=== PATIENT | female | born 1985 | race Caucasian/White ===

== ENCOUNTER 2019-03-19 04:12 | Emergency (ER) | payer MEDICAID ==
[~2019-03-19] VITALS: Ht 175.3 cm; Wt 75.0 kg
[~2019-03-19 04:12] MED LIST: IBUP-1051 PO; NO HOME MEDS; VAL2T PO
[2019-03-19 04:15] VITALS: BP 133/82
--- NOTE | 2019-03-19 04:35 | NUR ---
[facility] CONTACTED LOG #[id number] - 03/06/19 WAS THE DATE OF THE INCIDENT AND IT WAS ALREADY REPORTED.
--- NOTE | 2019-03-19 04:46 | NUR ---
PT OFFERED ICE BUT SHE DECLINES
== END 2019-03-19 05:19 | disposition home or self-care (01) ==
LOC: ER 04:13
DX: S62.617A Displaced fracture of proximal phalanx of left little finger, initial encounter for closed fracture (principal); Z79.899 Other long term (current) drug therapy; Z90.49 Acquired absence of other specified parts of digestive tract; Z98.890 Other specified postprocedural states; Z56.0 Unemployment, unspecified; X58.XXXA Exposure to other specified factors, initial encounter; Y93.39 Activity, other involving climbing, rappelling and jumping off; Y92.89 Other specified places as the place of occurrence of the external cause; Y99.8 Other external cause status
CPT/HCPCS: 29125; 73130; 99283

== ENCOUNTER 2019-04-11 11:58 | Outpatient (CLI) | payer MEDICAID | END 2019-04-11 13:50 | disposition home or self-care (01) | LOC: ORTHO 11:58 | PROVIDERS: ATTEND Orthopaedic Surgery | DX: S62.617D Displaced fracture of proximal phalanx of left little finger, subsequent encounter for fracture with routine healing (principal); F17.200 Nicotine dependence, unspecified, uncomplicated; X58.XXXD Exposure to other specified factors, subsequent encounter | CPT/HCPCS: 73140; G0463 ==

== ENCOUNTER 2019-04-16 08:30 | Outpatient (CLI) | payer MEDICAID ==
[~2019-04-16] VITALS: Ht 175.3 cm; Wt 76.2 kg
[2019-04-16 09:31] LABS: BASOPHILS % (AUTO) 0.6 % (0-1); EOSINOPHILS # (AUTO) 0.2 X10'3 (0-0.9); EOSINOPHILS % (AUTO) 2.3 % (0-6); LYMPHOCYTES # (AUTO) 1.8 X10'3 (1.1-4.8); LYMPHOCYTES % (AUTO) 22.3 % (21-51); MEAN CORPUSCULAR HEMOGLOBIN 32.4 PG (27.0-31.0); MEAN CORPUSCULAR HGB CONC 34.5 g/dL (33.0-36.5); MEAN CORPUSCULAR VOLUME 93.9 FL (78-98); MEAN PLATELET VOLUME 7.2 FL (7.4-10.4); MONOCYTES # (AUTO) 0.7 X10'3 (0-0.9); MONOCYTES % (AUTO) 9.1 % (2-12); NEUTROPHILS # (AUTO) 5.2 X10'3 (1.8-7.7); NEUTROPHILS % (AUTO) 65.7 % (42-75); PRE OP HEMATOCRIT 37.6 % (35.0-45.0); PRE OP PLATELET COUNT 345 X10'3 (140-440); RED CELL DISTRIBUTION WIDTH 13.6 % (11.5-14.5)
[2019-04-16 09:37] LABS: ALBUMIN 3.3 G/DL (3.4-5.0); ALBUMIN/GLOBULIN RATIO 0.9 (1.1-1.5); ALKALINE PHOSPHATASE 59 IU/L (46-116); BLOOD UREA NITROGEN 11 MG/DL (7-18); BUN/CREATININE RATIO 15.5 (6.6-38.0); CALCIUM 8.4 MG/DL (8.5-10.1); CHLORIDE 105 MMOL/L (99-107); CREATININE 0.71 MG/DL (0.40-0.90); PRE OP ALT 16 U/L (30-65); PRE OP ANION GAP 7 (8-16); PRE OP AST 12 U/L (10-37); PRE OP BILIRUB, TOTAL 0.3 MG/DL (0.0-1.0); PRE OP GLUCOSE 88 MG/DL (70-104); PRE OP POTASSIUM 3.8 MMOL/L (3.4-5.1); PRE OP SODIUM 139 MMOL/L (135-145); TOTAL PROTEIN 6.9 G/DL (6.4-8.2); eGFR > 90 ML/MIN
--- NOTE | 2019-04-16 10:30 | NUR ---
PT'S HCG CAME BACK POSITIVE, CALL TO DR FRANCOIS'S OFFICE AND LEFT MESSAGE WITH HIS STAFF, THEY WILL BE CONTACTING PT.
[2019-04-16 11:01] LABS: HCG SERUM QL POSITIVE
[2019-04-17] MEDS ORDERED: ringers solution, lacted 1,000 ML IV SCH (05:00)
[2019-04-17] MEDS ORDERED: famotidine 20mg tablet PO ONE (05:30)
[2019-04-17] MEDS ORDERED: cefazolin/dext.iso 2gm/50ml 50 ML IV ONE (05:30)
== END 2019-04-16 23:59 | disposition home or self-care (01) ==
LOC: PRE-OP 08:30 → EDSTATUS 04-17 17:15
PROVIDERS: ATTEND Orthopaedic Surgery
DX: S62.647D Nondisplaced fracture of proximal phalanx of left little finger, subsequent encounter for fracture with routine healing (principal)
CPT/HCPCS: 36415; 80053; 84703; 85025; J7120

== ENCOUNTER 2019-12-02 08:59 | Emergency (ER) | payer MEDICAID ==
[~2019-12-02] VITALS: Ht 175.3 cm; Wt 78.2 kg
[~2019-12-02 08:59] MED LIST changes: -IBUP-1051 PO; -VAL2T PO
[2019-12-02] MEDS ORDERED: OFLO5DRO5 RIGHT EAR (09:38)
[2019-12-02 10:02] LABS: CLARITY,URINE CLOUDY (Clear); COLOR,URINE YELLOW (Yellow); GLUCOSE, URINE NEGATIVE (Neg); KETONES,URINE NEGATIVE (Neg); LEUKOCYTE ESTERASE ,URINE NEGATIVE (Neg); NITRITES, URINE NEGATIVE (Neg); OCCULT BLOOD,URINE LARGE (Neg); PROTEIN,URINE TRACE mg/dl (Neg); UROBILINOGEN,URINE 0.2 E.U/dL (0.2-1.0)
[2019-12-02 10:06] LABS: UA COLLECTION TYPE CLN CATCH MIDSTREAM
[2019-12-02 10:07] LABS: MUCUS STRANDS MODERATE /LPF (Neg); SQUAMOUS EPITHELIAL CELL,UR MODERATE /LPF (FEW)
[2019-12-02 10:09] LABS: BACTERIA,URINE 2+ /HPF (Neg); RBC,URINE TNTC /HPF (0-2); URINE AMPHETAMINE SCREEN POSITIVE (Neg); URINE BARBITUATE SCREEN NEGATIVE (Neg); URINE BENZODIAZEPINES SCREEN NEGATIVE (Neg); URINE CANNABINOID SCREEN NEGATIVE (Neg); URINE COCAINE SCREEN NEGATIVE (Neg); URINE METHADONE SCREEN NEGATIVE (Neg); URINE OPIATE SCREEN NEGATIVE (Neg); URINE PHENCYCLIDINE SCREEN NEGATIVE (Neg)
[2019-12-02 10:10] LABS: HYALINE CASTS 0-3 /LPF (NEGATIVE)
[2019-12-02 10:28] LABS: URINE HCG POSITIVE (NEG)
[2019-12-02 10:37] VITALS: BP 135/101
[2019-12-02 10:38] LABS: BASOPHILS # (AUTO) 0.1 X10'3 (0-0.2); BASOPHILS % (AUTO) 1.2 % (0-1); EOSINOPHILS # (AUTO) 0.3 X10'3 (0-0.9); EOSINOPHILS % (AUTO) 3.1 % (0-6); HEMATOCRIT 40.6 % (35.0-45.0); HEMOGLOBIN 13.1 g/dl (12.0-16.0); LYMPHOCYTES % (AUTO) 36.6 % (21-51); MEAN CORPUSCULAR HEMOGLOBIN 28.1 PG (27.0-31.0); MEAN CORPUSCULAR HGB CONC 32.3 g/dL (33.0-36.5); MEAN CORPUSCULAR VOLUME 86.9 FL (78-98); MEAN PLATELET VOLUME 8.1 FL (7.4-10.4); MONOCYTES # (AUTO) 0.6 X10'3 (0-0.9); MONOCYTES % (AUTO) 7.3 % (2-12); NEUTROPHILS # (AUTO) 4.3 X10'3 (1.8-7.7); NEUTROPHILS % (AUTO) 51.8 % (42-75); PLATELET COUNT 378 X10'3 (140-440); RED BLOOD COUNT 4.68 X10'6 (4.20-5.60); RED CELL DISTRIBUTION WIDTH 19.1 % (11.5-14.5); WHITE BLOOD COUNT 8.3 X10'3 (4.5-11.0)
[2019-12-02] MEDS ORDERED: ketorolac trometh. 30mg/ml inj. IM STA (10:40)
[2019-12-02 10:57] LABS: ALANINE AMINOTRANSFERASE 33 U/L (12-78); ALBUMIN 3.1 G/DL (3.4-5.0); ALBUMIN/GLOBULIN RATIO 0.7 (1.1-1.5); ALKALINE PHOSPHATASE 115 IU/L (46-116); ANION GAP 13 (8-16); ASPARTATE AMINO TRANSFERASE 31 U/L (10-37); BILIRUBIN,TOTAL 0.3 MG/DL (0.1-1.0); BLOOD UREA NITROGEN 14 MG/DL (7-18); BUN/CREATININE RATIO 13.2 (6.6-38.0); CALCIUM 8.9 MG/DL (8.5-10.1); CHLORIDE 105 MMOL/L (99-107); CREATININE 1.06 MG/DL (0.40-0.90); GLUCOSE 111 MG/DL (70-104); SODIUM 142 MMOL/L (135-145); TOTAL CARBON DIOXIDE 23.8 MMOL/L (24-32); TOTAL PROTEIN 7.4 G/DL (6.4-8.2); eGFR 59 ML/MIN
[2019-12-02 11:00] LABS: PLATELET ESTIMATE NORMAL
[2019-12-02 11:01] LABS: ANISOCYTOSIS 2+
[2019-12-02 11:04] LABS: ETHANOL < 0.010 GM/DL (0.0-0.010); PHOSPHORUS 4.1 MG/DL (2.3-4.5)
== END 2019-12-02 11:28 | disposition home or self-care (01) ==
LOC: ER 08:59
DX: H60.91 Unspecified otitis externa, right ear (principal); R20.0 Anesthesia of skin; E86.0 Dehydration; F19.10 Other psychoactive substance abuse, uncomplicated; Z90.49 Acquired absence of other specified parts of digestive tract; Z56.0 Unemployment, unspecified; Z79.2 Long term (current) use of antibiotics
CPT/HCPCS: 36415; 80053; 80305; 80320; 81001; 81025; 83735; 84100; 84443; 85025; 87088; 96372; 99283; J1885

== ENCOUNTER 2020-09-04 16:03 | Emergency (ER) | payer MEDICAID ==
[~2020-09-04] VITALS: Ht 175.3 cm; Wt 71.0 kg
[~2020-09-04 16:03] MED LIST changes: +OFLO5DRO5 RIGHT EAR
[2020-09-04 16:30] VITALS: BP 129/93
[2020-09-04] MEDS ORDERED: cephalexin 500mg capsule PO ONE (18:10)
[2020-09-04] MEDS ORDERED: sulfamethoxazole/trimethoprim DS (800/160mg) tablet PO ONE (18:10)
[2020-09-04] MEDS ORDERED: SULF1TAB45 PO (18:25)
[2020-09-04] MEDS ORDERED: CEPH-585 PO (18:25)
== END 2020-09-04 18:34 | disposition home or self-care (01) ==
LOC: ER 16:03
DX: L02.511 Cutaneous abscess of right hand (principal); Z90.49 Acquired absence of other specified parts of digestive tract; Z98.890 Other specified postprocedural states; Z56.0 Unemployment, unspecified; Z79.899 Other long term (current) drug therapy
CPT/HCPCS: 73130; 99283

== ENCOUNTER 2021-04-10 19:31 | Emergency (ER) | payer MEDICAID ==
[~2021-04-10] VITALS: Ht 175.3 cm; Wt 77.7 kg
[2021-04-10 19:38] VITALS: BP 143/89
[2021-04-10] MEDS ORDERED: amox tr/potassium clavulanate 500mg/125mg TAB PO ONE (20:30)
[2021-04-10] MEDS ORDERED: HYDROcodone/acetaminophen 10/325mg tab PO ONE (20:30)
[2021-04-10] MEDS ORDERED: ondansetron 4mg rapidly disintigrating tab PO ONE (20:30)
[2021-04-10] MEDS ORDERED: HYDR-3964 PO (20:37)
[2021-04-10] MEDS ORDERED: ONDA4TAB6 PO (20:37)
[2021-04-10] MEDS ORDERED: AMOX-422 PO (20:37)
[2021-04-10] MEDS ORDERED: CIPR7.5D LEFT EAR (20:37)
== END 2021-04-10 20:51 | disposition home or self-care (01) ==
LOC: ER 19:32
DX: H66.91 Otitis media, unspecified, right ear (principal); H60.311 Diffuse otitis externa, right ear; H60.01 Abscess of right external ear; Z90.49 Acquired absence of other specified parts of digestive tract; Z56.0 Unemployment, unspecified; Z79.2 Long term (current) use of antibiotics; Z79.899 Other long term (current) drug therapy
CPT/HCPCS: 99284

== ENCOUNTER 2021-09-10 02:38 | Emergency (ER) | payer MEDICAID ==
[~2021-09-10] VITALS: Ht 175.3 cm; Wt 77.3 kg
[~2021-09-10 02:38] MED LIST changes: +CIPR7.5D LEFT EAR; +ONDA4TAB6 PO
[2021-09-10] MEDS ORDERED: azithromycin 250mg tablet PO ONE (04:10)
[2021-09-10] MEDS ORDERED: CefTRIAXone 250MG IM Kit w/LIDOcaine IM ONE (04:10)
[2021-09-10] MEDS ORDERED: VALA10002 PO (04:10)
[2021-09-10] MEDS ORDERED: metroNIDAZOLE 500mg tablet PO ONE (04:10)
[2021-09-10] MEDS ORDERED: CefTRIAXone 500MG IM Kit w/LIDOcaine IM ONE (04:15)
[2021-09-10] MEDS ORDERED: CefTRIAXone 1000mg IM Kit (w/lidocaine diluent) IM ONE (04:15)
[2021-09-10] MEDS ORDERED: LIDO20SO16 PO (04:33)
[2021-09-10 04:42] VITALS: BP 125/76
== END 2021-09-10 04:44 | disposition home or self-care (01) ==
LOC: ER 02:39
DX: A60.04 Herpesviral vulvovaginitis (principal); F17.210 Nicotine dependence, cigarettes, uncomplicated; Z56.0 Unemployment, unspecified; Z79.899 Other long term (current) drug therapy
CPT/HCPCS: 96372; 99284; J0696

== ENCOUNTER 2022-04-06 22:03 | Emergency (ER) | payer MEDICAID ==
[~2022-04-06] VITALS: Ht 175.3 cm; Wt 77.3 kg
[~2022-04-06 22:03] MED LIST changes: +LIDO20SO16 PO; +VALA10002 PO
[2022-04-06 22:38] VITALS: BP 124/85
== END 2022-04-07 00:59 | disposition left against medical advice (07) ==
LOC: ER 22:03
DX: Z00.8 Encounter for other general examination (principal); Z53.21 Procedure and treatment not carried out due to patient leaving prior to being seen by health care provider

== ENCOUNTER 2024-01-01 08:57 | Emergency (ER) | payer MEDICAID ==
[~2024-01-01] VITALS: Ht 175.3 cm; Wt 75.8 kg
[2024-01-01] MEDS: normal saline 1000ml 1,000 ML IV ONE (09:38)
[2024-01-01] MEDS: ondansetron/PF 4mg/2ml inj IV ONE (09:44)
[2024-01-01] MEDS: morphine 4 MG/ML inj SYRINge IV ONE (09:44)
[2024-01-01 10:35] LABS: ALANINE AMINOTRANSFERASE 26 U/L (12-78); ALBUMIN 3.2 G/DL (3.4-5.0); ALBUMIN/GLOBULIN RATIO 0.8 (1.1-1.5); ALKALINE PHOSPHATASE 86 IU/L (46-116); ANION GAP 11 (8-16); ASPARTATE AMINO TRANSFERASE 17 U/L (10-37); BILIRUBIN,TOTAL 0.6 MG/DL (0.1-1.0); BLOOD UREA NITROGEN 11 MG/DL (7-18); BUN/CREATININE RATIO 15.5 (10.0-20.0); CALCIUM 8.6 MG/DL (8.5-10.1); CHLORIDE 102 MMOL/L (99-107); CREATININE 0.71 MG/DL (0.40-0.90); GLUCOSE 90 MG/DL (70-104); LIPASE 20 U/L (16-77); POTASSIUM 3.4 MMOL/L (3.5-5.1); SODIUM 135 MMOL/L (135-145); TOTAL CARBON DIOXIDE 22.4 MMOL/L (24-32); TOTAL PROTEIN 7.1 G/DL (6.4-8.2); eCRCL 110 ML/MIN; eGFR > 90 ML/MIN
[2024-01-01 10:37] LABS: ETHANOL < 10 MG/DL (<10)
[2024-01-01 10:45] LABS: BASOPHILS % (AUTO) 0.1 % (0-1); EOSINOPHILS % (AUTO) 0.4 % (0-6); HEMATOCRIT 36.2 % (35.0-45.0); HEMOGLOBIN 12.1 g/dl (12.0-16.0); LYMPHOCYTES # (AUTO) 0.6 X10'3 (1.1-4.8); LYMPHOCYTES % (AUTO) 7.4 % (21-51); MEAN CORPUSCULAR HEMOGLOBIN 30.1 PG (27.0-31.0); MEAN CORPUSCULAR HGB CONC 33.3 g/dL (33.0-36.5); MEAN CORPUSCULAR VOLUME 90.3 FL (78-98); MEAN PLATELET VOLUME 7.2 FL (7.4-10.4); MONOCYTES # (AUTO) 0.2 X10'3 (0-0.9); NEUTROPHILS # (AUTO) 7.6 X10'3 (1.8-7.7); NEUTROPHILS % (AUTO) 90.1 % (42-75); PLATELET COUNT 300 X10'3 (140-440); RED BLOOD COUNT 4.01 X10'6 (4.20-5.60); RED CELL DISTRIBUTION WIDTH 16.1 % (11.5-14.5); WHITE BLOOD COUNT 8.5 X10'3 (4.5-11.0)
[2024-01-01 10:49] LABS: URINE HCG NEGATIVE (NEG)
[2024-01-01 10:52] LABS: BILIRUBIN,URINE NEGATIVE (Neg); CLARITY,URINE CLOUDY (Clear); COLOR,URINE YELLOW (Yellow); GLUCOSE, URINE NEGATIVE (Neg); KETONES,URINE NEGATIVE (Neg); LEUKOCYTE ESTERASE ,URINE TRACE (Neg); NITRITES, URINE POSITIVE (Neg); OCCULT BLOOD,URINE NEGATIVE (Neg); PROTEIN,URINE TRACE mg/dl (Neg); UROBILINOGEN,URINE 0.2 E.U/dL (0.2-1.0)
[2024-01-01 11:00] LABS: BACTERIA,URINE 3+ /HPF (Neg); SQUAMOUS EPITHELIAL CELL,UR MANY /LPF (FEW); UA COLLECTION TYPE OTHER
[2024-01-01 11:01] LABS: TRANSITIONAL EPI CELLS,URINE FEW /HPF; WBC,URINE 30-50 /HPF (0-4)
[2024-01-01] MEDS ORDERED: iohexol 300mg/ml 100ml inj. ONE (11:06)
[2024-01-01 11:07] LABS: URINE AMPHETAMINE SCREEN POSITIVE (Neg); URINE BARBITUATE SCREEN NEGATIVE (Neg); URINE BENZODIAZEPINES SCREEN NEGATIVE (Neg); URINE CANNABINOID SCREEN NEGATIVE (Neg); URINE COCAINE SCREEN NEGATIVE (Neg); URINE METHADONE SCREEN NEGATIVE (Neg); URINE OPIATE SCREEN POSITIVE (Neg); URINE PHENCYCLIDINE SCREEN NEGATIVE (Neg)
[2024-01-01] MEDS: cephalexin 250mg capsule PO ONE (12:53)
[2024-01-01] MEDS: ketorolac trometh. 30mg/ml inj. IV ONE (13:14)
[2024-01-01] MEDS ORDERED: CEPH-585 PO (13:18)
[2024-01-01] MEDS ORDERED: ONDA-243 PO (13:18)
[2024-01-01 13:28] VITALS: BP 107/77; PULSE 110; RESP 16; TEMP 98; O2SAT 98
== END 2024-01-01 13:29 | disposition home or self-care (01) ==
LOC: ER 08:57
DX: K52.9 Noninfective gastroenteritis and colitis, unspecified (principal); N39.0 Urinary tract infection, site not specified; Z87.442 Personal history of urinary calculi; Z79.2 Long term (current) use of antibiotics; Z79.899 Other long term (current) drug therapy; Z90.49 Acquired absence of other specified parts of digestive tract; Z98.890 Other specified postprocedural states; Z56.0 Unemployment, unspecified
CPT/HCPCS: 36415; 74177; 80053; 80305; 80320; 81001; 81025; 83605; 83690; 85025; 87088; 87186; 96361; 96374; 96375; 99285; J1885; J2270; J2405; J7030; Q9967; 87077; A4353

== ENCOUNTER 2024-01-03 12:04 | Inpatient (IN) | payer MEDICAID ==
[~2024-01-03] VITALS: Ht 172.7 cm; Wt 74.9 kg
[~2024-01-03 12:04] MED LIST changes: +CEPH-585 PO; +ONDA-243 PO
[2024-01-03] MEDS: normal saline 1000ml 1,000 ML IV ONE (12:39)
[2024-01-03 12:51] LABS: BASOPHILS % (AUTO) 0.2 % (0-1); EOSINOPHILS % (AUTO) 0.2 % (0-6); HEMOGLOBIN 13.3 g/dl (12.0-16.0); LYMPHOCYTES % (AUTO) 5.8 % (21-51); MEAN CORPUSCULAR HEMOGLOBIN 29.9 PG (27.0-31.0); MEAN CORPUSCULAR HGB CONC 33.3 g/dL (33.0-36.5); MEAN PLATELET VOLUME 7.1 FL (7.4-10.4); MONOCYTES # (AUTO) 0.8 X10'3 (0-0.9); MONOCYTES % (AUTO) 4.7 % (2-12); NEUTROPHILS # (AUTO) 15.5 X10'3 (1.8-7.7); NEUTROPHILS % (AUTO) 89.1 % (42-75); PLATELET COUNT 438 X10'3 (140-440); RED BLOOD COUNT 4.44 X10'6 (4.20-5.60); RED CELL DISTRIBUTION WIDTH 15.8 % (11.5-14.5); WHITE BLOOD COUNT 17.4 X10'3 (4.5-11.0)
[2024-01-03] MEDS ORDERED: iohexol 300mg/ml 100ml inj. ONE (13:10)
[2024-01-03 13:17] LABS: ALANINE AMINOTRANSFERASE 12 U/L (12-78); ALBUMIN 2.9 G/DL (3.4-5.0); ALBUMIN/GLOBULIN RATIO 0.6 (1.1-1.5); ALKALINE PHOSPHATASE 110 IU/L (46-116); ANION GAP 9 (8-16); ASPARTATE AMINO TRANSFERASE 6 U/L (10-37); BILIRUBIN,TOTAL 0.6 MG/DL (0.1-1.0); BLOOD UREA NITROGEN 13 MG/DL (7-18); BUN/CREATININE RATIO 14.4 (10.0-20.0); CALCIUM 9.9 MG/DL (8.5-10.1); CHLORIDE 100 MMOL/L (99-107); GLUCOSE 104 MG/DL (70-104); LIPASE 10 U/L (16-77); POTASSIUM 3.2 MMOL/L (3.5-5.1); SODIUM 138 MMOL/L (135-145); TOTAL CARBON DIOXIDE 29.4 MMOL/L (24-32); TOTAL PROTEIN 7.8 G/DL (6.4-8.2); eCRCL 84 ML/MIN; eGFR 69 ML/MIN
[2024-01-03] MEDS: ketorolac trometh. 30mg/ml inj. IV ONE (13:33)
[2024-01-03] MEDS: piperacillin/tazo 4.5gm/100ml 100 ML IV ONE (14:18)
[2024-01-03] MEDS ORDERED: magnesium Cl slow-release 64mg tablet PO PRN (15:10)
[2024-01-03] MEDS ORDERED: HYDROcodone/acetaminophen 5mg/325mg tablet PO PRN (15:10)
[2024-01-03] MEDS ORDERED: potassium Cl 20 mEq SR tablet PO PRN (15:10)
[2024-01-03] MEDS ORDERED: morphine 2 MG/ML inj. syringe IV PRN (15:10)
[2024-01-03] MEDS ORDERED: magnesium sulf-water 2g/50mL 50 ML IV PRN (15:10)
[2024-01-03] MEDS ORDERED: magnesium sulf-water 4G/100mL 100 ML IV PRN (15:10)
[2024-01-03] MEDS ORDERED: acetaminophen 325mg tablet PO PRN ×2 (15:10)
[2024-01-03] MEDS: morphine 2 MG/ML inj. syringe IV PRN (15:44)
[2024-01-03] MEDS: vancomycin/NS 1 GM ADD-VANTAGE 250 ML IV SCH (16:29)
[2024-01-03] MEDS: normal saline 1000ml 1,000 ML IV SCH (16:29)
[2024-01-03 16:51] LABS: HIV ANTIBODY 1&2 RAPID NON-REACTIVE (Neg)
[2024-01-03 17:55] VITALS: RESP 16
[2024-01-03 18:00] VITALS: BP 117/58; PULSE 81; RESP 17; TEMP 97.7; O2SAT 98
[2024-01-03 18:12] LABS: BILIRUBIN,URINE NEGATIVE (Neg); CLARITY,URINE SLIGHTLY CLOUDY (Clear); COLOR,URINE YELLOW (Yellow); GLUCOSE, URINE NEGATIVE (Neg); KETONES,URINE NEGATIVE (Neg); LEUKOCYTE ESTERASE ,URINE NEGATIVE (Neg); OCCULT BLOOD,URINE SMALL (Neg); PH,URINE 6.5 (4.8-8.0); PROTEIN,URINE 30 mg/dl (Neg); URINE HCG NEGATIVE (NEG); UROBILINOGEN,URINE 0.2 E.U/dL (0.2-1.0)
[2024-01-03 18:22] LABS: UA COLLECTION TYPE CLN CATCH MIDSTREAM
[2024-01-03 18:24] LABS: NITRITES, URINE NEGATIVE (Neg)
[2024-01-03 18:34] LABS: SQUAMOUS EPITHELIAL CELL,UR MODERATE /LPF (FEW)
[2024-01-03 18:35] LABS: BACTERIA,URINE FEW /HPF (Neg); RBC,URINE 0-2 /HPF (0-2)
[2024-01-03 18:40] LABS: URINE AMPHETAMINE SCREEN POSITIVE (Neg); URINE BARBITUATE SCREEN NEGATIVE (Neg); URINE BENZODIAZEPINES SCREEN NEGATIVE (Neg); URINE CANNABINOID SCREEN NEGATIVE (Neg); URINE COCAINE SCREEN NEGATIVE (Neg); URINE METHADONE SCREEN NEGATIVE (Neg); URINE OPIATE SCREEN POSITIVE (Neg); URINE PHENCYCLIDINE SCREEN NEGATIVE (Neg)
[2024-01-03 20:00] VITALS: RESP 16
[2024-01-03] MEDS: potassium Cl 40MEQ/1/2NS 520ml 520 ML IV PRN (20:11)
[2024-01-03] MEDS: piperacillin/tazo 3.375gm/50ml 50 ML IV SCH (20:11)
[2024-01-03] MEDS: heparin, porcine 5000 units/ml vial SQ SCH (20:12)
[2024-01-03 22:00] VITALS: BP 117/58; PULSE 102; RESP 16; RESP 20; TEMP 98.2; O2SAT 97
[2024-01-04] MEDS: HYDROcodone/acetaminophen 10/325mg tab PO PRN (04:38)
[2024-01-04 08:00] VITALS: RESP 18; O2SAT 97
[2024-01-04 08:01] LABS: EOSINOPHILS # (AUTO) 0.2 X10'3 (0-0.9); MEAN CORPUSCULAR HGB CONC 33.7 g/dL (33.0-36.5); RED BLOOD COUNT 3.64 X10'6 (4.20-5.60)
[2024-01-04 08:03] LABS: BASOPHILS % (AUTO) 0.3 % (0-1); EOSINOPHILS % (AUTO) 1.6 % (0-6); HEMOGLOBIN 11.1 g/dl (12.0-16.0); LYMPHOCYTES # (AUTO) 1.3 X10'3 (1.1-4.8); LYMPHOCYTES % (AUTO) 12.8 % (21-51); MEAN CORPUSCULAR HEMOGLOBIN 30.5 PG (27.0-31.0); MEAN CORPUSCULAR VOLUME 90.6 FL (78-98); MEAN PLATELET VOLUME 7.5 FL (7.4-10.4); MONOCYTES % (AUTO) 10.2 % (2-12); NEUTROPHILS # (AUTO) 7.4 X10'3 (1.8-7.7); NEUTROPHILS % (AUTO) 75.1 % (42-75); PLATELET COUNT 378 X10'3 (140-440); RED CELL DISTRIBUTION WIDTH 16.3 % (11.5-14.5); WHITE BLOOD COUNT 9.9 X10'3 (4.5-11.0)
[2024-01-04 08:09] LABS: ALANINE AMINOTRANSFERASE 11 U/L (12-78); ALBUMIN 2.1 G/DL (3.4-5.0); ALBUMIN/GLOBULIN RATIO 0.5 (1.1-1.5); ANION GAP 7 (8-16); ASPARTATE AMINO TRANSFERASE 9 U/L (10-37); BILIRUBIN,TOTAL 0.5 MG/DL (0.1-1.0); BLOOD UREA NITROGEN 15 MG/DL (7-18); BUN/CREATININE RATIO 15.6 (10.0-20.0); CALCIUM 8.3 MG/DL (8.5-10.1); CHLORIDE 105 MMOL/L (99-107); CREATININE 0.96 MG/DL (0.40-0.90); GLUCOSE 89 MG/DL (70-104); POTASSIUM 3.4 MMOL/L (3.5-5.1); SODIUM 137 MMOL/L (135-145); TOTAL CARBON DIOXIDE 24.7 MMOL/L (24-32); TOTAL PROTEIN 6.1 G/DL (6.4-8.2); eCRCL 79 ML/MIN; eGFR 64 ML/MIN
[2024-01-04 08:10] LABS: ALKALINE PHOSPHATASE 89 IU/L (46-116)
[2024-01-04] MEDS: nicotine 14mg patch - 24hr TD SCH (10:13)
[2024-01-04 18:00] VITALS: BP 130/86; PULSE 88; RESP 16; TEMP 98; O2SAT 96
[2024-01-04] MEDS: potassium Cl 20 mEq SR tablet PO PRN (19:01)
[2024-01-04 20:00] VITALS: RESP 16; O2SAT 96
[2024-01-04 22:00] VITALS: BP 133/86; PULSE 98; RESP 20; TEMP 98.5; O2SAT 99
[2024-01-05] MEDS: VANCOMYCIN LEVEL IV ONE ×2 (03:43→15:30)
[2024-01-05] MEDS: ondansetron/PF 4mg/2ml inj IV PRN (05:57)
[2024-01-05 06:00] VITALS: BP 135/92; PULSE 84; RESP 14; TEMP 98.4; O2SAT 96
[2024-01-05 07:50] VITALS: RESP 18; O2SAT 97
[2024-01-05 07:50] LABS: BASOPHILS % (AUTO) 0.5 % (0-1); EOSINOPHILS # (AUTO) 0.1 X10'3 (0-0.9); EOSINOPHILS % (AUTO) 1.3 % (0-6); HEMOGLOBIN 11.3 g/dl (12.0-16.0); LYMPHOCYTES # (AUTO) 0.9 X10'3 (1.1-4.8); LYMPHOCYTES % (AUTO) 10.9 % (21-51); MEAN CORPUSCULAR HGB CONC 33.1 g/dL (33.0-36.5); MEAN CORPUSCULAR VOLUME 90.4 FL (78-98); MEAN PLATELET VOLUME 6.7 FL (7.4-10.4); MONOCYTES % (AUTO) 11.6 % (2-12); NEUTROPHILS # (AUTO) 6.4 X10'3 (1.8-7.7); NEUTROPHILS % (AUTO) 75.7 % (42-75); PLATELET COUNT 346 X10'3 (140-440); RED BLOOD COUNT 3.77 X10'6 (4.20-5.60); RED CELL DISTRIBUTION WIDTH 16.1 % (11.5-14.5); WHITE BLOOD COUNT 8.4 X10'3 (4.5-11.0)
[2024-01-05 08:03] LABS: ALANINE AMINOTRANSFERASE 11 U/L (12-78); ALBUMIN/GLOBULIN RATIO 0.5 (1.1-1.5); ALKALINE PHOSPHATASE 97 IU/L (46-116); ANION GAP 9 (8-16); ASPARTATE AMINO TRANSFERASE 14 U/L (10-37); BILIRUBIN,TOTAL 0.8 MG/DL (0.1-1.0); BLOOD UREA NITROGEN 13 MG/DL (7-18); CALCIUM 8.5 MG/DL (8.5-10.1); CHLORIDE 106 MMOL/L (99-107); CREATININE 1.45 MG/DL (0.40-0.90); GLUCOSE 88 MG/DL (70-104); POTASSIUM 3.5 MMOL/L (3.5-5.1); SODIUM 138 MMOL/L (135-145); TOTAL CARBON DIOXIDE 23.5 MMOL/L (24-32); TOTAL PROTEIN 6.2 G/DL (6.4-8.2); eCRCL 52 ML/MIN; eGFR 40 ML/MIN
[2024-01-05 08:10] LABS: VANCOMYCIN,TROUGH 29.7 ug/mL (10.0-20.0)
[2024-01-05 11:00] VITALS: BP 127/83; PULSE 74; RESP 15; TEMP 98.1; O2SAT 98
[2024-01-05 12:29] LABS: ALANINE AMINOTRANSFERASE 10 U/L (12-78); ALBUMIN/GLOBULIN RATIO 0.5 (1.1-1.5); ALKALINE PHOSPHATASE 99 IU/L (46-116); ANION GAP 7 (8-16); ASPARTATE AMINO TRANSFERASE 24 U/L (10-37); BILIRUBIN,TOTAL 0.8 MG/DL (0.1-1.0); BLOOD UREA NITROGEN 13 MG/DL (7-18); BUN/CREATININE RATIO 8.8 (10.0-20.0); CALCIUM 8.4 MG/DL (8.5-10.1); CHLORIDE 105 MMOL/L (99-107); CREATININE 1.48 MG/DL (0.40-0.90); GLUCOSE 87 MG/DL (70-104); SODIUM 139 MMOL/L (135-145); TOTAL CARBON DIOXIDE 27.1 MMOL/L (24-32); TOTAL PROTEIN 6.1 G/DL (6.4-8.2); eCRCL 51 ML/MIN; eGFR 39 ML/MIN
[2024-01-05] MEDS: VANCOmycin 1250MG/NS 250ml Bag 250 ML IV SCH (17:03)
[2024-01-05 18:00] VITALS: BP 146/89; PULSE 86; RESP 18; TEMP 98.4; O2SAT 97
[2024-01-05 20:00] VITALS: RESP 18; O2SAT 97
[2024-01-05] MEDS: polyethylene glycol 3350 17gm powd pack PO SCH (20:09)
[2024-01-05 22:00] VITALS: BP 140/95; PULSE 92; RESP 20; TEMP 99.4; O2SAT 97
[2024-01-06 00:43] LABS: OCCULT BLOOD STOOL POSITIVE (Neg)
[2024-01-06 05:42] LABS: BASOPHILS % (AUTO) 0.2 % (0-1); EOSINOPHILS # (AUTO) 0.1 X10'3 (0-0.9); EOSINOPHILS % (AUTO) 1.5 % (0-6); HEMATOCRIT 31.3 % (35.0-45.0); HEMOGLOBIN 10.5 g/dl (12.0-16.0); LYMPHOCYTES # (AUTO) 1.1 X10'3 (1.1-4.8); MEAN CORPUSCULAR HEMOGLOBIN 30.3 PG (27.0-31.0); MEAN CORPUSCULAR HGB CONC 33.4 g/dL (33.0-36.5); MEAN CORPUSCULAR VOLUME 90.8 FL (78-98); MEAN PLATELET VOLUME 7.2 FL (7.4-10.4); MONOCYTES # (AUTO) 1.1 X10'3 (0-0.9); MONOCYTES % (AUTO) 14.5 % (2-12); NEUTROPHILS # (AUTO) 5.5 X10'3 (1.8-7.7); NEUTROPHILS % (AUTO) 69.8 % (42-75); PLATELET COUNT 392 X10'3 (140-440); RED BLOOD COUNT 3.45 X10'6 (4.20-5.60); RED CELL DISTRIBUTION WIDTH 16.3 % (11.5-14.5); WHITE BLOOD COUNT 7.9 X10'3 (4.5-11.0)
[2024-01-06 06:00] LABS: ALANINE AMINOTRANSFERASE 15 U/L (12-78); ALBUMIN 1.9 G/DL (3.4-5.0); ALBUMIN/GLOBULIN RATIO 0.5 (1.1-1.5); ALKALINE PHOSPHATASE 106 IU/L (46-116); ANION GAP 9 (8-16); ASPARTATE AMINO TRANSFERASE 13 U/L (10-37); BILIRUBIN,TOTAL 0.8 MG/DL (0.1-1.0); BLOOD UREA NITROGEN 9 MG/DL (7-18); BUN/CREATININE RATIO 6.4 (10.0-20.0); CALCIUM 8.4 MG/DL (8.5-10.1); CHLORIDE 105 MMOL/L (99-107); GLUCOSE 86 MG/DL (70-104); POTASSIUM 3.1 MMOL/L (3.5-5.1); SODIUM 139 MMOL/L (135-145); TOTAL CARBON DIOXIDE 24.9 MMOL/L (24-32); eCRCL 54 ML/MIN; eGFR 42 ML/MIN
[2024-01-06 07:05] VITALS: BP 152/93; PULSE 66; RESP 20; TEMP 98.6; O2SAT 97
[2024-01-06 08:07] VITALS: RESP 18
[2024-01-06 08:25] LABS: CHLAMYDIA TRACHOMATIS, NAA Negative (Negative)
[2024-01-06 10:00] VITALS: BP 128/72; PULSE 92; RESP 16; TEMP 97.4; O2SAT 97
[2024-01-06 10:36] LABS: PRO BRAIN NATRIURETIC PEPTIDE 643 PG/ML (0-125)
[2024-01-06] MEDS: metroNIDAZOLE-Flagyl 500mg/NS 100 ML IV SCH (10:54)
[2024-01-06] MEDS: ciprofloxacin lact 400MG/200ML 200 ML IV SCH (10:54)
[2024-01-06] MEDS: bisacodyl 10mg suppository rectal RC STA (16:16)
[2024-01-06] MEDS: metoclopramide 5 mg/ml inj IV ONE (16:42)
[2024-01-06] MEDS ORDERED: vancomycin/NS 1 GM ADD-VANTAGE 250 ML IV SCH (17:00)
[2024-01-06 18:00] VITALS: BP 138/89; PULSE 98; RESP 16; TEMP 98.6; O2SAT 99
[2024-01-06] MEDS ORDERED: magnesium sulf-water 4G/100mL 100 ML IV PRN (18:20)
[2024-01-06] MEDS ORDERED: magnesium sulf-water 2g/50mL 50 ML IV PRN (18:20)
[2024-01-06] MEDS ORDERED: magnesium Cl slow-release 64mg tablet PO PRN (18:20)
[2024-01-06] MEDS: potassium Cl 40MEQ/1/2NS 520ml 520 ML IV PRN (19:18)
[2024-01-06 20:00] VITALS: RESP 16; O2SAT 98
[2024-01-06] MEDS: K and/or MAG REPLACEMENT MC SCH (20:00)
[2024-01-06 22:00] VITALS: BP 145/93; PULSE 76; RESP 16; TEMP 98.3; O2SAT 98
[2024-01-07] MEDS ORDERED: VANCOMYCIN LEVEL IV ONE (04:30)
[2024-01-07 05:00] VITALS: BP 128/86; PULSE 86; RESP 18; TEMP 98.9; O2SAT 93
[2024-01-07 05:54] LABS: BASOPHILS % (AUTO) 0.3 % (0-1); EOSINOPHILS # (AUTO) 0.1 X10'3 (0-0.9); EOSINOPHILS % (AUTO) 1.6 % (0-6); HEMOGLOBIN 9.2 g/dl (12.0-16.0); LYMPHOCYTES # (AUTO) 1.3 X10'3 (1.1-4.8); LYMPHOCYTES % (AUTO) 18.3 % (21-51); MEAN CORPUSCULAR HEMOGLOBIN 29.7 PG (27.0-31.0); MEAN CORPUSCULAR HGB CONC 32.8 g/dL (33.0-36.5); MEAN CORPUSCULAR VOLUME 90.5 FL (78-98); MEAN PLATELET VOLUME 7.5 FL (7.4-10.4); MONOCYTES % (AUTO) 13.7 % (2-12); NEUTROPHILS # (AUTO) 4.8 X10'3 (1.8-7.7); NEUTROPHILS % (AUTO) 66.1 % (42-75); PLATELET COUNT 387 X10'3 (140-440); RED CELL DISTRIBUTION WIDTH 15.9 % (11.5-14.5); WHITE BLOOD COUNT 7.3 X10'3 (4.5-11.0)
[2024-01-07 06:11] LABS: % IRON SATURATION 14 % (11-46); IRON 28 UG/DL (49-151); TOTAL IRON BINDING CAPACITY 198 UG/DL (259-388)
[2024-01-07 06:13] LABS: ALANINE AMINOTRANSFERASE 14 U/L (12-78); ALBUMIN 1.9 G/DL (3.4-5.0); ALBUMIN/GLOBULIN RATIO 0.5 (1.1-1.5); ALKALINE PHOSPHATASE 95 IU/L (46-116); ANION GAP 6 (8-16); ASPARTATE AMINO TRANSFERASE 12 U/L (10-37); BILIRUBIN,TOTAL 0.3 MG/DL (0.1-1.0); BLOOD UREA NITROGEN 6 MG/DL (7-18); BUN/CREATININE RATIO 5.4 (10.0-20.0); CALCIUM 8.2 MG/DL (8.5-10.1); CHLORIDE 107 MMOL/L (99-107); CREATININE 1.12 MG/DL (0.40-0.90); GLUCOSE 97 MG/DL (70-104); MAGNESIUM 1.6 MG/DL (1.5-2.4); POTASSIUM 3.2 MMOL/L (3.5-5.1); SODIUM 138 MMOL/L (135-145); TOTAL CARBON DIOXIDE 25.2 MMOL/L (24-32); TOTAL PROTEIN 5.6 G/DL (6.4-8.2); eCRCL 67 ML/MIN; eGFR 54 ML/MIN
[2024-01-07 08:20] VITALS: RESP 18
[2024-01-07 10:35] VITALS: BP 127/93; PULSE 77; RESP 15; TEMP 97.7; O2SAT 99
[2024-01-07] MEDS: potassium Cl 20 mEq SR tablet PO PRN ×2 (11:20→21:14)
[2024-01-07] MEDS ORDERED: morphine 2 MG/ML inj. syringe IV PRN (12:45)
[2024-01-07] MEDS ORDERED: metoclopramide 10mg tablet PO PRN (12:45)
[2024-01-07] MEDS ORDERED: bisacodyl 10mg suppository rectal RC PRN (12:45)
[2024-01-07] MEDS: morphine 2 MG/ML inj. syringe IV PRN (15:17)
[2024-01-07 18:00] VITALS: BP 134/92; PULSE 81; RESP 16; TEMP 98; O2SAT 99
[2024-01-07 22:00] VITALS: BP 142/79; PULSE 76; RESP 18; TEMP 98.9; O2SAT 97
[2024-01-08] MEDS ORDERED: VANCOMYCIN LEVEL IV ONE (04:30)
[2024-01-08 06:00] VITALS: BP 117/54; PULSE 88; RESP 16; TEMP 98.6; O2SAT 98
[2024-01-08 06:20] LABS: BASOPHILS # (AUTO) 0.1 X10'3 (0-0.2); BASOPHILS % (AUTO) 0.9 % (0-1); EOSINOPHILS # (AUTO) 0.1 X10'3 (0-0.9); EOSINOPHILS % (AUTO) 1.8 % (0-6); HEMOGLOBIN 8.6 g/dl (12.0-16.0); LYMPHOCYTES % (AUTO) 26.5 % (21-51); MEAN CORPUSCULAR HEMOGLOBIN 29.8 PG (27.0-31.0); MEAN CORPUSCULAR VOLUME 90.4 FL (78-98); MEAN PLATELET VOLUME 7.4 FL (7.4-10.4); MONOCYTES # (AUTO) 0.5 X10'3 (0-0.9); NEUTROPHILS # (AUTO) 4.7 X10'3 (1.8-7.7); NEUTROPHILS % (AUTO) 63.8 % (42-75); PLATELET COUNT 408 X10'3 (140-440); RED BLOOD COUNT 2.87 X10'6 (4.20-5.60); RED CELL DISTRIBUTION WIDTH 15.9 % (11.5-14.5); WHITE BLOOD COUNT 7.4 X10'3 (4.5-11.0)
[2024-01-08 06:25] LABS: ALANINE AMINOTRANSFERASE 28 U/L (12-78); ALBUMIN 1.9 G/DL (3.4-5.0); ALBUMIN/GLOBULIN RATIO 0.5 (1.1-1.5); ALKALINE PHOSPHATASE 89 IU/L (46-116); ANION GAP 7 (8-16); ASPARTATE AMINO TRANSFERASE 14 U/L (10-37); BILIRUBIN,TOTAL 0.3 MG/DL (0.1-1.0); BLOOD UREA NITROGEN 6 MG/DL (7-18); BUN/CREATININE RATIO 5.5 (10.0-20.0); CALCIUM 8.1 MG/DL (8.5-10.1); CHLORIDE 108 MMOL/L (99-107); GLUCOSE 96 MG/DL (70-104); MAGNESIUM 1.5 MG/DL (1.5-2.4); POTASSIUM 3.2 MMOL/L (3.5-5.1); SODIUM 141 MMOL/L (135-145); TOTAL CARBON DIOXIDE 26.3 MMOL/L (24-32); TOTAL PROTEIN 5.4 G/DL (6.4-8.2); eCRCL 69 ML/MIN; eGFR 55 ML/MIN
[2024-01-08 08:00] VITALS: RESP 18; O2SAT 98
[2024-01-08 10:00] VITALS: BP 135/88; PULSE 56; RESP 18; TEMP 97.5; O2SAT 98
[2024-01-08] MEDS ORDERED: CIPR-202 PO (10:00)
[2024-01-08] MEDS ORDERED: NICO-631 TD (10:00)
[2024-01-08] MEDS ORDERED: ACET-3174 PO (10:00)
[2024-01-08] MEDS ORDERED: POTA-208 PO (10:00)
[2024-01-08] MEDS ORDERED: METR-159 PO (10:00)
== END 2024-01-08 12:02 | disposition home or self-care (01) | DRG 249 ==
LOC: ER 12:05 → ED HOLD 15:11 → SUR 3N 18:01
PROVIDERS: ADMIT Internal Medicine; ATTEND Internal Medicine
PROC: BW211ZZ Computerized Tomography (CT Scan) of Abdomen and Pelvis using Low Osmolar Contrast (ICD-10-PCS; principal; 2024-01-03)
PROC: 05HY33Z Insertion of Infusion Device into Upper Vein, Percutaneous Approach (ICD-10-PCS; 2024-01-05)
PROC: B54NZZA Ultrasonography of Left Upper Extremity Veins, Guidance (ICD-10-PCS; 2024-01-05)
DX: K52.9 Noninfective gastroenteritis and colitis, unspecified (principal); K56.600 Partial intestinal obstruction, unspecified as to cause; K56.7 Ileus, unspecified; E87.6 Hypokalemia; N83.292 Other ovarian cyst, left side; N83.291 Other ovarian cyst, right side; F17.210 Nicotine dependence, cigarettes, uncomplicated; F15.90 Other stimulant use, unspecified, uncomplicated; Z83.3 Family history of diabetes mellitus; Z90.49 Acquired absence of other specified parts of digestive tract
CPT/HCPCS: 36410; 36415; 74018; 74177; 76700; 76830; 76856; 76937; 80053; 80202; 80305; 81001; 81025; 82272; 83540; 83550; 83605; 83690; 83735; 83880; 84145; 85025; 85651; 86703; 87040; 87081; 87088; 87491; 87591; 93306; 93976; 96365; 96375; 97161; 99285; C1751; G0378; J0744; J1644; J1885; J2270; J2405; J2543; J2765; J3370; J3480; J3490; J7030; Q9967

== ENCOUNTER 2024-05-19 13:18 | Emergency (ER) | payer MEDICAID ==
[~2024-05-19] VITALS: Ht 172.7 cm; Wt 65.5 kg
[~2024-05-19 13:18] MED LIST changes: +ACET-3174 PO; -CEPH-585 PO; -CIPR7.5D LEFT EAR; -LIDO20SO16 PO; +NICO-631 TD; -NO HOME MEDS; -OFLO5DRO5 RIGHT EAR; -ONDA-243 PO; -ONDA4TAB6 PO; +POTA-208 PO; -VALA10002 PO
[2024-05-19 13:22] VITALS: BP 146/91; PULSE 105; RESP 16; O2SAT 100
[2024-05-19] MEDS ORDERED: CEPH-585 PO (14:53)
[2024-05-19] MEDS ORDERED: MUPI22OI30 TOP (14:53)
[2024-05-19] MEDS ORDERED: NEOM10DR45 EACH EAR (14:53)
[2024-05-19 14:59] VITALS: TEMP 98.8
== END 2024-05-19 15:01 | disposition home or self-care (01) ==
LOC: ER 13:19
DX: H60.93 Unspecified otitis externa, bilateral (principal); L01.00 Impetigo, unspecified; Z79.1 Long term (current) use of non-steroidal anti-inflammatories (NSAID); Z79.899 Other long term (current) drug therapy; Z90.49 Acquired absence of other specified parts of digestive tract
CPT/HCPCS: 99283

== ENCOUNTER 2024-05-20 23:06 | Emergency (ER) | payer MEDICAID ==
[~2024-05-20] VITALS: Ht 172.7 cm; Wt 66.0 kg
[~2024-05-20 23:06] MED LIST changes: +CEPH-585 PO; +MUPI22OI30 TOP; +NEOM10DR45 EACH EAR
[2024-05-21 03:37] VITALS: BP 155/93; PULSE 103; RESP 16; TEMP 98; O2SAT 100
[2024-05-21] MEDS: HYDROcodone/acetaminophen 5mg/325mg tablet PO ONE (04:01)
[2024-05-21] MEDS: ketorolac trometh 15mg/ml vial 15 MG/ML ML IM ONE (04:02)
== END 2024-05-21 04:55 | disposition home or self-care (01) ==
LOC: ER 23:06
DX: H60.92 Unspecified otitis externa, left ear (principal); Z79.1 Long term (current) use of non-steroidal anti-inflammatories (NSAID); Z79.2 Long term (current) use of antibiotics; Z79.899 Other long term (current) drug therapy; Z90.49 Acquired absence of other specified parts of digestive tract
CPT/HCPCS: 96372; 99283; J1885

== ENCOUNTER 2024-11-03 02:47 | Emergency (ER) | payer MEDICAID ==
[~2024-11-03] VITALS: Ht 172.7 cm; Wt 79.1 kg
[~2024-11-03 02:47] MED LIST changes: -MUPI22OI30 TOP; -NEOM10DR45 EACH EAR
[2024-11-03 02:52] VITALS: TEMP 97.7
[2024-11-03] MEDS ORDERED: AMOX-117 PO (03:20)
--- NOTE | 2024-11-03 03:21 | Physician Documentation ---
HPI ~ General Chief Complaint: Tooth Problem Stated Complaint: TOOTH PAIN Time Seen by MD: 03:13 Primary Medical Doctor: Pedro Barragan History of Present Illness HPI Comment This is a 39-year-old female with self-reported history of poor dentition comes in for evaluation of dental pain and swelling on the left upper jaw for the last 2-3 days. She treated with the ibuprofen without much success. No particular palliating factors. Aggravated by eating, drinking and exerting any pressure on the teeth. She noticed earlier today that she has started developing some as facial swelling. She does not have a dentist. Denies any difficulty opening her mouth, talking, denies any drooling. Patient denies use of tobacco, alcohol or illicit substances Medication Reconciliation Allergies: Coded Allergies: No Known Allergies (Unverified , 05/19/24) Scheduled Acetaminophen (Tylenol 8 Hour), 1 TAB PO Q8H Cephalexin*Monohydrate* (Keflex*), 1 CAP PO TID Nicotine 14 MG Patch* (Habitrol 14 MG Patch*), 1 PATCH TD DAILY Potassium Chloride (Potassium Chloride), 1 TAB PO DAILY Past Medical History Past Medical History: No Pertinent History Past Surgical History: appendectomy, orthopedic surgeries Patient History: FH: diabetes mellitus FAMILY/OTHER, Name: Nephew (Type 1) Alcohol Use: None Drug Use: other Lives In: Home Occupation: unemployed Review of Systems ROS 10 point review of systems was performed and unless noted above in HPI is negative for acute process/complaint. Physical Exam Vital Signs: Temperature: 97.7, Source: Temporal, Heart Rate: 86, Respiratory Rate: 20, BP: 161/108, Pulse Oximetry: 99, Weight: 79.100 Oxygen Flow Rate: 0 Physical Exam Physical examination: GENERAL: Awake, alert, oriented, GCS 15, no apparent distress, non-toxic appearing, answers questions, follows commands appropriately. HEENT: Atraumatic, normocephalic, pupils equal, extraocular muscles intact Active gross movements, sclerae anicteric, mucus membranes moist, no stridor. NECK: Midline, no JVD CARDIOVASCULAR: Good skin perfusion without evidence of pallor, mottling. PULMONARY: Nonlabored, symmetric chest rise, no audible wheezing, no accessory muscle use, no respiratory distress, speaking in full sentences. GASTROINTESTINAL: Not distended. NEUROLOGIC: Lucid with normal mental status. Normal facial symmetry. Moves all extremities symmetrically and with purpose. No truncal ataxia. Speech is fluid without evidence of dysarthria or aphasia, no focal deficits appreciated. EXTREMITIES: Acute deformities Skin: warm, dry PSYCHIATRIC: Normal affect, normal insight, normal concentration. Focused exam: [] Poor dentition noted. Multiple missing teeth, multiple caries. No obvious abscess. No trismus, no drooling, no hot potato voice, no floor of the mouth elevation, no brawny submandibular erythema, no pain with flexion or extension of the neck. Posterior airway is patent. Progress Results/Orders Results/Orders Vital Signs 11/03/24 02:52 Temp 97.7 Pulse 86 Resp 20 B/P (MAP) 161/108 Pulse Ox 99 O2 Flow Rate 0 Medical Decision Making Findings Facility Status: ED Holds, [facility] process The plan was discussed with the patient, who demonstrates clear understanding of the plan and is in agreement with the plan unless otherwise noted in the chart. All questions have been answered, all concerns were addressed unless otherwise documented. I was available throughout their ED stay for frequent reassessment and questions. Differential Diagnoses (considered and possible or likely): [Dental pain, dental infection, dental abscess, clinically less likely to be osteomyelitis of the jaw, not consistent with Kannan's angina, peritonsillar abscess or retropharyngeal abscess] ??Differential Diagnoses (considered and unlikely, not requiring evaluation currently): [See above] MDM Data Please see [facility] for the following: Independent Historians and external Records Re view. Historian: [Patient] Independent Historians: ?[None] Medication Management: [Reviewed medication list] Social History and determinants: [Reviewed] Please see the body of the note for the following: Any independent interpretations of ECG, imaging studies. All vitals signs/haemodynamics, ordered tests were independently reviewed and interpreted by myself. Nursing triage complaint and vitals reviewed, additional nursing notes were reviewed as available and I agree unless otherwise noted or documented in contradiction in the chart Vital Signs: Independently reviewed Labs: Independently interpreted Imaging: Independently interpreted Old Medical Records: Independently reviewed, see [facility] for relevant summary and information Additionally notably showing: [Hemodynamically stable] Tests considered but not ordered include: [Hematologic workup and imaging has been considered but does not appear to be necessary given clinical nature of diagnosis] Social Determinants of Health Impact: Patient was evaluated in [place], [place], or [facility] is [facility] with limited access to healthcare due to below par ratio of patient to medical providers. [] Comorbid Conditions Impacting Present Evaluation and Care/Treatment: [Poor dentition] Management Discussions with other Healthcare Providers: [None] Treatment and Disposition Medication Management (Given or considered): [Pain management and initial dose of antibiotics]. See EMR for details Consideration for Hospitalization/Escalation/Deescalation of Care: Admission for observation has been considered, [however the patient is able to tolerate p.o., their symptoms are controlled, they are able to rely on oral medications, and their chief complaint/diagnosis can be managed on outpatient basis.] ?ED Course:?[No clinical deterioration] ?Shared decision making:?[Patient is hemodynamically stable for discharge home with follow with their primary care provider. [ ] Specific and cautious return precautions provided and discussed with full understanding. Any incidental findings were also discussed and follow up recommendations given. [] All questions answered. Patient/family were able to verbalize back return precautions. Patient/family agree to plan. Copies of imaging and laboratory studies were provided.] Code status:?FULL Please see the full Electronic Medical Record for full details of nursing documentation, medications list, other records of complete past medical history and conditions, vital signs, laboratory studies, and any radiologic study interpretations by radiologists. Portions of this note were completed using [employer] dictation software and as a result there may exist minor errors in spelling. I have reviewed elements of past family and social history and agree as included in note. Departure Disposition: HOME / SELF CARE / HOMELESS Impression: Primary Impression: Dental infection Additional Impression: Toothache Condition: Improved Discharge Instructions: Dental Abscess Referrals: NO PRIMARY CARE PROVIDER (PCP) Prescriptions Amox Tr/Potassium Clavulanate (Augmentin 875-125 Tablet) 1 Each Tablet 1 TAB PO Q12H for 10 Days, #20 TAB Prov: RUSH MONTOYA DO 11/03/24 Education Educated: Patient Educated regarding: diagnosis, treatment, prognosis, need for follow up Signature Scribe Signature: No scribe Attestation: This note accurately reflects clinical decisions, work performed by myself, DO LINDSAY Scanlon NICHOLAS M DO Nov 03, 2024 03:21
[2024-11-03] MEDS: HYDROcodone/acetaminophen 5mg/325mg tablet PO ONE (03:39)
[2024-11-03] MEDS: amox tr/potassium clavulanate 875/125mg TAB PO ONE (03:39)
[2024-11-03] MEDS: ketorolac trometh 30MG/ML vial 30 MG/ML VIAL IM ONE (03:40)
[2024-11-03 03:50] VITALS: BP 139/96; PULSE 92; RESP 20; O2SAT 99
== END 2024-11-03 04:05 | disposition home or self-care (01) ==
LOC: ER 02:48
DX: K04.7 Periapical abscess without sinus (principal); Z90.49 Acquired absence of other specified parts of digestive tract
CPT/HCPCS: 96372; 99283; J1885